=== PATIENT | female | born 1955 | race Caucasian/White ===

== ENCOUNTER → 2016-10-27 | Day surgery (SDC) | payer MEDICARE, OTHER | END | disposition home or self-care (01) | LOC: FAS 12:48 | DX: H26.9 Unspecified cataract (principal); K21.9 Gastro-esophageal reflux disease without esophagitis; I10 Essential (primary) hypertension; J44.9 Chronic obstructive pulmonary disease, unspecified; Z88.2 Allergy status to sulfonamides; Z79.82 Long term (current) use of aspirin; Z79.899 Other long term (current) drug therapy; Z90.49 Acquired absence of other specified parts of digestive tract; Z98.890 Other specified postprocedural states; Z98.51 Tubal ligation status; Z87.891 Personal history of nicotine dependence | CPT/HCPCS: J2704; V2632 ==

== ENCOUNTER 2020-10-27 19:48 | Emergency (ER) | payer MEDICARE, OTHER ==
[~2020-10-27 19:48] MED LIST: ABILIFY5 MG PO; AMBIEN5 MG PO; AZITHROMYCIN250 MG PO; BUSPIRONE HCL10 MG PO; DICLOFENAC SODI75 MG PO; MYSOLINE50 MG PO; NORVASC5 MG PO; SMZ TMP; VALSARTAN80 MG PO; VENTOLIN HFA IN18 GM INH; ZPAK PO; ZYPREXA 5MG TABL5 MG PO
[2020-10-27] MEDS ORDERED: MEDROL 4MG DOSEP4 MG PO (22:01)
== END 2020-10-27 22:14 | disposition home or self-care (01) ==
LOC: FER 19:48
DX: S39.012A Strain of muscle, fascia and tendon of lower back, initial encounter (principal); S20.211A Contusion of right front wall of thorax, initial encounter; Z94.2 Lung transplant status; Z88.2 Allergy status to sulfonamides; W10.9XXA Fall (on) (from) unspecified stairs and steps, initial encounter; Y92.009 Unspecified place in unspecified non-institutional (private) residence as the place of occurrence of the external cause
CPT/HCPCS: 70450; 71045; 71100; 72125; J1885